=== PATIENT | female | born 2000 | race Two or more races ===

== ENCOUNTER 2021-05-12 22:19 | Emergency (ER) | payer MEDICAID ==
[~2021-05-12] VITALS: Ht 167.6 cm; Wt 111.4 kg
[2021-05-12 22:37] VITALS: BP 159/73
== END 2021-05-12 23:52 | disposition home or self-care (01) ==
LOC: ER 22:20
DX: S61.213A Laceration without foreign body of left middle finger without damage to nail, initial encounter (principal); W26.8XXA Contact with other sharp object(s), not elsewhere classified, initial encounter; Y93.89 Activity, other specified; Y92.89 Other specified places as the place of occurrence of the external cause; Y99.8 Other external cause status
CPT/HCPCS: 12001; 99282

== ENCOUNTER 2021-12-02 12:46 | Emergency (ER) | payer MEDICAID ==
[~2021-12-02] VITALS: Ht 167.6 cm; Wt 120.2 kg
[2021-12-02 12:49] VITALS: BP 139/64
[2021-12-02] MEDS ORDERED: CEPH500C2 PO (13:32)
== END 2021-12-02 13:39 | disposition home or self-care (01) ==
LOC: ER 12:46
DX: L02.211 Cutaneous abscess of abdominal wall (principal)
CPT/HCPCS: 99283